=== PATIENT | male | born 1975 | race Hispanic/Latino ===

== ENCOUNTER 2016-11-28 06:47 | Day surgery (SDC) | payer OTHER, BC ==
[2016-11-26 15:22] VITALS: BMI 35.9
[2016-11-28 07:37] VITALS: RESP 18
[2016-11-28] MEDS ORDERED: Lactated Ringer's 1,000 ML IV ONE ×2 (07:45→13:00)
[2016-11-28] MEDS ORDERED: Lidocaine 1% Inj (20ml) ONE (07:48)
[2016-11-28] MEDS ORDERED: Bacitracin Ointment 30 GM TUBE ONE (07:48)
[2016-11-28] MEDS ORDERED: Midazolam 2 MG/2 ML VIAL ONE (08:36)
[2016-11-28] MEDS ORDERED: Vecuronium 10 mg Inj ONE (08:36)
[2016-11-28] MEDS ORDERED: Propofol 10 mg/ml Inj (20 ML) ONE ×2 (08:36→13:32)
[2016-11-28] MEDS ORDERED: Phenylephrine 10 mg/ml Inj ONE (08:37)
[2016-11-28] MEDS ORDERED: ePHEDrine 50 mg/ml Inj ONE (08:37)
[2016-11-28] MEDS ORDERED: Succinylcholine 200 mg/10 ml Inj IV ONE (08:47)
[2016-11-28] MEDS ORDERED: Lidocaine 2% MPF (5 ml) Inj ONE (08:53)
[2016-11-28] MEDS ORDERED: Morphine 1 mg/ml preservative-free Inj(Duramorph) ONE (09:30)
[2016-11-28] MEDS ORDERED: Bupivacaine 0.5% Inj(30mL) ONE ×2 (09:31→09:57)
[2016-11-28] MEDS ORDERED: MethylPREDNISolone Depo 40 mg/ml Inj ONE (09:31)
[2016-11-28] MEDS ORDERED: Rocuronium 10 mg/ml (5 ml) ONE ×2 (12:00→13:33)
[2016-11-28] MEDS ORDERED: Dexamethasone 4 mg/1 ml ONE (12:12)
[2016-11-28] MEDS ORDERED: Sevoflurane - Inhalation Anesthetic Liq (250 ml) ONE (13:02)
[2016-11-28] MEDS ORDERED: Neostigmine Methylsulfate 2 MG/2 ML ML IV ONE (13:47)
[2016-11-28] MEDS ORDERED: Neostigmine Methylsulfate 3mg/3ml Syringe IV ONE (13:47)
--- NOTE | 2016-11-28 14:30 | PCM.SURG1 ---
Surgeon's Initial Post Op Note - Surgeon's Notes Surgeon: Tiffany Press Tender: ROBERTO Thurston Type of Anesthesia: General Endo Anesthesia Administered By: Dr Dieudonne Goodman Pre-Operative Diagnosis: post traumatic derangement R knee Operative Findings: Tear/rupture lateral colloateral ligament. CHONDRAL Fracture lateral femoral condyle. PERIPHERAL SEPARATION MEDIAL MENISCUS. TEARMEDIAL/LATERAL MENISCUS. tricompartmental synovitis Post-Operative Diagnosis: as above Operation Performed: primary repair/reconstruction lateral collateral ligament with internal brace. microfracture lateral femoral condyle. arthroscopic medial meniscal repair. arthroscopic partial tericompartmental synovectomy. arthroscopic partial medial/lateral meniscectopmy. applx Micah Yeager dressing and knee immobilizer. ar Specimen/Specimens Removed: cartilage/synovium/bone Estimated Blood Loss: EBL {In ML}: 5 Blood Products Given: N/A Drains Used: No Drains Post-Op Condition: Good Date of Surgery/Procedure: 11/28/16 Time of Surgery/Procedure: 12:00 (time in room/anetshesia induction time- 10:43)
[2016-11-28] MEDS ORDERED: Lactated Ringer's 1,000 ML IV SCH (14:32)
--- NOTE | 2016-11-28 14:37 | PCM.ANESB3 ---
Femoral Nerve Block - Femoral Nerve Block Date of Procedure: 11/28/16 Anesthesiologist: Dieudonne Goodman Pre-Procedure Diagnosis: Post Traumatic Derangement Right Knee Procedure Performed: Femoral Nerve Block Right - Procedure Femoral Nerve Block: The procedure was explained to the patient that it is for the post-operative pain management. Consent was obtained after a thorough discussion with the patient regarding the benefits and possible complications of local anesthetic block of the femoral nerve at the inguinal crease area. The patient was brought to the operating room and standard monitors were applied. Time-out was held with the circulating nurse to confirm the correct surgery and the appropriate block. After applying oxygen by nasal cannula and administering IV Sedation, patient was placed in supine position with fully extended lower extremities and the right groin exposed. The femoral artery was then carefully palpated. The ultrasound transducer was then applied to this area in the transverse plane and the femoral nerve was visualized lateral to the femoral artery and underneath the fascia iliaca. After thorough identification, the inguinal crease area was prepped with Betadine solution three times and 1 % Lidocaine was injected subcutaneously for topical anesthesia. At this point, a #22 gauge Stimuplex 2-inch needle was inserted immediately lateral to the femoral artery pulse at the inguinal crease and advanced perpendicularly. The needle was inserted to the ultrasound transducer in-plane towards the femoral nerve in a [id number] direction. Needle advancement was performed carefully under direct ultrasound visualization. Nerve stimulator was used and twitch of the quadriceps muscle was obtained at current of 0.4 MA. After negative aspiration, _20cc of 0.5% bupivacaine was injected. Under ultrasound guidance the local anesthetics were observed spreading below fascia iliaca and around the femoral nerve. The needle was removed intact and sterile dressing was applied. The patient had stable vital signs, was conscious and in no apparent distress. The patient tolerated the femoral nerve block well with stable vital signs and was prepared for subsequent surgery.
[2016-11-28] MEDS: HYDROmorphone 0.5 mg/0.5 ml ISec IVP PRN ×4 (14:50→15:40)
[2016-11-28] MEDS ORDERED: Oxycodone/Acetaminophen 5/325 mg Tab PO ONE ×2 (16:48→19:19)
[2016-11-28 19:21] VITALS: BP 138/81; PULSE 62; TEMP 97.8; O2SAT 99
--- NOTE | 2016-11-29 09:23 | RAD ---
PROCEDURE: Intraoperative Fluoroscopy. HISTORY: RIGHT KNEE STABILIZATION FINDINGS: Fluoroscopic assistance was provided. 17.8 seconds fluoroscopy time utilized during this procedure. . Please refer to the operative
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
== END 2016-11-28 20:04 | disposition home or self-care (01) ==
LOC: H.OPSURG 06:47
PROVIDERS: ATTEND Orthopaedic Surgery
DX: S83.521A Sprain of posterior cruciate ligament of right knee, initial encounter (principal); X58.XXXA Exposure to other specified factors, initial encounter
CPT/HCPCS: 29876; 29880; 97161; C1776; G8978; G8979; G8980; J0171; J0330; J0690; J1100; J1170; J2250; J2370; J2405; J2704; J2710; J3010; J7120; L1830